=== PATIENT | female | born 1985 | race Caucasian/White ===

== ENCOUNTER 2017-12-10 15:44 | Emergency (ER) | payer MEDICAID ==
[~2017-12-10] VITALS: Ht 165.1 cm; Wt 90.0 kg
[2017-12-10 16:35] VITALS: BP 98/118
== END 2017-12-10 16:36 | disposition home or self-care (01) ==
LOC: ER 15:45
DX: J02.9 Acute pharyngitis, unspecified (principal); J45.909 Unspecified asthma, uncomplicated; Z90.710 Acquired absence of both cervix and uterus
CPT/HCPCS: 99281